=== PATIENT | male | born 1955 | race African-American/Black ===

== ENCOUNTER 2023-03-20 19:19 | Emergency (ER) | payer MEDICARE, MEDICAID, SELFPAY ==
--- NOTE | ~2023-03-20 | CT_ITS ---
EXAMINATION: CT BRAIN W/O DATE: 03/20/2023 21:00 INDICATION: Status post fall. TECHNIQUE: Computed tomography (CT) of the head was performed without intravenous contrast. The dose- length product was 605.33 mGy-cm. Automated exposure control and iterative reconstruction technique w ere employed. COMPARISON: No prior studies for comparison. FINDINGS: Normal brain parenchymal volume for age. Normal dougherty-white differentiation. No acute intrac ranial hemorrhage, infarction, mass or mass effect. There are scattered mild periventricular and subc ortical white matter changes, most likely related to small vessel ischemic disease (microangiopathy). No ventriculomegaly or midline shift. Midline sagittal images demonstrate a normal corpus callosum, c raniovertebral junction and sella turcica. Basilar cisterns are patent. Paranasal sinuses and mastoids are pneumatized. No depressed skull fractures. IMPRESSION: 1. No acute intracranial abnormality. Reviewed, dictated and finalized at location A.
--- NOTE | ~2023-03-20 | CT_ITS ---
EXAMINATION: CT cervical spine wo con DATE: 03/20/2023 21:00 INDICATION: Neck pain after fall TECHNIQUE: Computed tomography (CT) of the cervical spine was performed without intravenous contrast. The dose-length product was 408 mGy-cm. Automated exposure control and iterative reconstruction tech [employer] were employed. COMPARISON: None FINDINGS: Reversal of cervical lordosis. There is disc narrowing and endplate degenerative change at C4-5, C5-6, C6-7 and C7-T1. There is degenerative anterolisthesis at C4-5. Spinous processes are inta ct. No evidence for perched facet. Craniovertebral junction is normal. No acute fracture or traumatic malalignment. Lung apices are normal. No significant paraspinal soft tissue abnormality. There is mo derate multilevel uncinate and facet hypertrophy. IMPRESSION: 1. No acute abnormality of the cervical spine. 2: Severe cervical spondylosis. Reviewed, dictated and finalized at location A.
[2023-03-20 19:19] VITALS: BP 140/92; PULSE 107; RESP 22; TEMP 36.8; O2SAT 100
--- NOTE | 2023-03-20 19:29 | ECG_ITS ---
Measurements Intervals [place] Rate: 104 P: MD: 0 QRS: 66 QRSD: 96 T: -22 QT: 328 QTc: 432 Interpretive Statements ATRIAL FIBRILLATION WITH RAPID VENTRICULAR RESPONSE ST DEVIATION AND MODERATE T-WAVE ABNORMALITY, CONSIDER LATERAL ISCHEMIA [-0.1+ mV T WAVE IN I/aVL/V5/V6] NO PREVIOUS ECG AVAILABLE FOR COMPARISON Electronically Signed On 03-21-2023 11:24:53 CDT by Chris Aldrich M.D.
[2023-03-20 19:30] VITALS: BP 146/100; PULSE 109; RESP 19; O2SAT 100
[2023-03-20] MEDS: SODIUM CHLORIDE 0.9% IV 2,000 ML 999 ML IV CONT (21:08)
[2023-03-20 21:13] VITALS: BP 132/89; PULSE 106; RESP 20; O2SAT 100
[2023-03-20 21:13] LABS: Basophils Percent Auto 0.7 % (0.2-1.2); Eosinophils Percent Auto 0.7 % (0-4.4); Hematocrit 50.2 % (42.0-52.0); Hemoglobin 16.3 g/dL (14.0-18.0); Immature Granulocyte Absolute 0.01 K/mm3 (0.00-0.031); Immature Granulocyte Percent A 0.2 % (0-0.5); Lymphocytes Absolute Auto 1.22 K/mm3 (0.9-3.2); Lymphocytes Percent Auto 20.9 % (18.3-44.2); Mean Corpuscular HGB Conc 32.5 g/dl (32-36); Mean Corpuscular Hemoglobin 26.6 pg (26-34); Monocytes Absolute Auto 0.4 K/mm3 (0.1-0.6); Monocytes Percent Auto 6.9 % (2.6-8.5); Neutrophils Absolute Auto 4.1 K/mm3 (1.3-6.7); Neutrophils Percent Auto 70.6 % (45.5-73.1); Platelet Count Result 199 k/mm3 (150-375); Red Blood Count 6.12 M/mm3 (4.6-6.20); White Blood Count 5.8 K/mm3 (4.5-10.0)
[2023-03-20 21:27] LABS: Ethanol < 10 mg/dL (<10)
[2023-03-20 21:28] LABS: Alanine Aminotransferase 36 U/L (6-50); Albumin Level 4.6 g/dL (3.5-5.1); Alkaline Phosphatase 58 U/L (38-126); Anion Gap 9 mmol/L (8-16); Aspartate Amino Transferase 33 U/L (17-59); Bilirubin,Total 0.8 mg/dL (0.2-1.3); Blood Urea Nitrogen 23 mg/dL (9-20); Carbon Dioxide 27 mmol/L (22-30); Chloride 103 mmol/L (98-107); Estimated Glomerular Filt Rate > 60; Glucose 117 mg/dL (65-110); Potassium 3.8 mmol/L (3.4-5.0); Sodium 139 mmol/L (137-145)
[2023-03-20 21:29] LABS: Amphetamine Screen Urine Negative (Negative); Barbiturate Screen Urine Negative (Negative); Benzodiazepines Screen Urine Negative (Negative); Cannabinoid Screen Urine Positive (Negative); Cocaine Screen Urine Positive (Negative); Methadone Screen Urine Negative (Negative); Opiate Screen Urine Negative (Negative); Phencyclidine Screen Urine Negative (Negative)
--- NOTE | 2023-03-20 21:44 | ED.GENADULT ---
HPI - General Adult General Chief complaint: Seizure Stated complaint: seizure Time Seen by Provider: 03/20/23 20:39 History of Present Illness HPI narrative: This is a 67-year-old male [place] a possible seizure. Patient [place] and was eating some very spicy wings which did not agree with him. He also says he had not taken his seizure meds. He does not know what his seizure medications are. The patient denies use of drugs or alcohol. He has no physical complaints at this time. Related Data Allergies Allergy/AdvReac Type Severity Reaction Status Date / Time No Known Allergies Allergy Verified 03/20/23 19:32 [facility] Past Medical History Medical History Cocaine abuse Hypertension Exam Narrative: APPEARANCE: No apparent distress. Head: Small abrasion over the left eyebrow not requiring repair. EYES: EOMI, NOSE: Atraumatic NECK: Trachea midline RESPIRATORY: No increased rate of breathing CARDIOVASCULAR: RRR, ABDOMINAL: Non-distended MUSCULOSKELETAl: No obvious deformities NEURO: Alert. Cranial nerves 2-12 grossly intact. Sensation light touch, motor function cerebellar function intact for 4 extremities. Gait exam was normal. SKIN:: Warm, dry. Normal color PSYCHIATRIC: Normal affect Course Vital Signs Vital signs: Vital Signs Temperature 98.3 F 03/20/23 19:19 Pulse Rate 107 H 03/20/23 19:19 Respiratory Rate 22 H 03/20/23 19:19 Blood Pressure 140/92 H 03/20/23 19:19 Pulse Oximetry 100 03/20/23 19:19 Temperature 98.3 F 03/20/23 19:19 Pulse Rate 94 03/20/23 22:27 Respiratory Rate 13 03/20/23 22:27 Blood Pressure 143/86 H 03/20/23 22:27 Pulse Oximetry 100 03/20/23 22:27 Oxygen Delivery Room Air 03/20/23 19:30 Medical Decision Making [facility] Narrative Medical decision making narrative: -Course: 67-year-old male history of seizures [place]. He says he has not taken his seizure medication today. I tried to give him his home dose but he does not know what they are and cannot find records in our system. His drug screen was positive for cocaine and cannabinoids. Found to be in a-fib w/ rvr. CHADSVASC 2 (age/htn) Given eliquis and cardizem. Hr improved. Patient will be started on Eliquis and given outpatient follow-up. -DDX includes but is not limited to: Substance use disorder, cocaine toxicity, alcohol toxicity, seizure disorder, syncope, medication noncompliance -Co-morbidities complicating care: seizure disorder, hypertension, cocaine use disorder -Social determinants of health: retired order entry specialist, lives alone in [place] -Independent interpretation of studies: CBC and BMP normal. Urine drug screen positive for cocaine and cannabinoids. Alcohol undetectable. CT head and C-spine unremarkable. Independent EKG interpretation: Rhythm: Atrial fibrillation, Rate [104], Index -[normal], NE -[normal], QRS [narrow], QTC [normal], T waves -[negative for concerning inversions], ST Segments - [Negative for concerning elevations] Final interpretations: AFib with RVR -Interventions: 2 L normal saline, 10 mg Cardizem, 5 mg p.o. Eliquis -Shared decision making / Disposition: discharge with primary care follow-up -RX: Eliquis 5 mg b.i.d. Vital Signs Vital Signs: Vital Signs Temperature 98.3 F 03/20/23 19:19 Pulse Rate 107 H 03/20/23 19:19 Respiratory Rate 22 H 03/20/23 19:19 Blood Pressure 140/92 H 03/20/23 19:19 Pulse Oximetry 100 03/20/23 19:19 Temperature 98.3 F 03/20/23 19:19 Pulse Rate 94 03/20/23 22:27 Respiratory Rate 13 03/20/23 22:27 Blood Pressure 143/86 H 03/20/23 22:27 Pulse Oximetry 100 03/20/23 22:27 Oxygen Delivery Room Air 03/20/23 19:30 Lab Data 03/20/23 20:49 03/20/23 20:49 Labs: Lab Results
[2023-03-20] MEDS: APIXABAN 5 MG TABLET PO (22:23)
[2023-03-20] MEDS: dilTIAZem HCl INJ 25 MG/5 ML VIAL 10 MG IV PUSH (22:23)
[2023-03-20 22:27] VITALS: BP 143/86; PULSE 94; RESP 13; O2SAT 100
[2023-03-20 23:33] VITALS: BP 124/80; PULSE 100; RESP 20; O2SAT 100
== END 2023-03-20 23:35 | disposition home or self-care (01) ==
PROVIDERS: Emergency Provider Emergency Medicine
DX: G40.409 Other generalized epilepsy and epileptic syndromes, not intractable, without status epilepticus (principal); F14.90 Cocaine use, unspecified, uncomplicated; I48.91 Unspecified atrial fibrillation
CPT/HCPCS: 36415; 70450; 72125; 80053; 80307; 85025; 93005; 96361; 96374; 99284; A9270; J7030